=== PATIENT | female | born 1985 | race Caucasian/White ===

== ENCOUNTER 2016-08-16 23:50 | Emergency (ER) | payer OTHER ==
[~2016-08-16 23:50] MED LIST changes: -CHLORHEXIDINE GLUCONATE 2 % 1 PACK (2 CLOTHS) TOPICAL PRN; -HYDR-3516 PO; -INSULIN HUMAN REGULAR 1,000 UNITS/10 ML VIAL SQ PRN; -LACTATED RINGER'S 1000 ML IV PRN; -METOPROLOL TARTRATE 25 MG TAB PO PRN; -POVIDONE IODINE 5% (ANTISEPSIS KIT) 4 APPLICATIONS EACH NARE PRN; -SODIUM CHLORID 0.9% 500 ML IV PRN; -ceFAZolin 2 GM PREMIX 50 ML IV SCH
[2016-08-16 23:53] VITALS: BP 132/78; PULSE 98; RESP 18; TEMP 99.6; O2SAT 99
[2016-08-17] MEDS ORDERED: ONDANSETRON HCL 4 MG/2 ML VIAL IV PUSH ONE (00:30)
[2016-08-17] MEDS ORDERED: MORPHINE SULFATE 4 MG/ML INJ IV PUSH ONE (00:30)
[2016-08-17] MEDS ORDERED: HYDR-3516 PO (00:40)
--- NOTE | 2016-08-17 00:40 | PD ---
HPI Chief Complaint: Related Problem Time Seen by Provider: 00:14 Travel History International Travel<30 days: No Contact w/Intl Traveler<30days: No Traveled to known affect area: No History of Present Illness HPI 30-year-old female complains of severe low abdominal pain pelvic pain and vaginal bleeding. Patient is 2 para 0 and about 9 weeks . Patient has been seen by Dr. Ruelas at the [facility]. Patient had several pelvic ultrasound which shows intrauterine demise approximately 9 weeks of gestation. Patient was scheduled for D&C this morning. Patient however had some drinks this morning and D&C procedure was rescheduled for 5 days from now. Patient states that she started having increasing low abdominal pelvic pain since this morning and worse this evening. Patient started having increasing vaginal bleeding since this morning also. Patient denies any fever chills. Patient states that her blood type is O+. PFSH Past Medical History Medical other: Yes (THYROID) ?: LMP: 05/14/16 Past Surgical History Surgical History: No Previous Surgery Social History Alcohol Use: No Tobacco Use: Yes (1/2 PK DAILY) Allergies-Medications (Allergen,Severity, Reaction): Coded Allergies: No Known Allergies (Unverified , 08/17/16) Reported Meds & Prescriptions Reported Meds & Active Scripts Active No Active Prescriptions or Reported Medications Review of Systems General / Constitutional: No: Fever Eyes: No: Visual changes HENT: No: Headaches Cardiovascular: No: Chest Pain or Discomfort Respiratory: No: Shortness of Breath Gastrointestinal: Positive: Abdominal Pain Genitourinary: Positive: Pelvic Pain, Vaginal Bleeding, No: Dysuria Musculoskeletal: No: Pain Skin: No Rash Neurologic: No: Weakness Psychiatric: No: Depression Endocrine: No: Polydipsia Hematologic/Lymphatic: No: Easy Bruising Physical Exam Narrative GENERAL: Well-nourished, well-developed patient. SKIN: Focused skin assessment warm/dry. HEAD: Normocephalic. EYES: No scleral icterus. No injection or drainage. NECK: Supple, trachea midline. No JVD or lymphadenopathy. CARDIOVASCULAR: Regular rate and rhythm without murmurs, gallops, or rubs. RESPIRATORY: Breath sounds equal bilaterally. No accessory muscle use. GASTROINTESTINAL: Abdomen soft, non-tender, nondistended. MUSCULOSKELETAL: No cyanosis, or edema. BACK: Nontender without obvious deformity. No CVA tenderness. 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 The cervix is closed. The uterus is enlarged and moderate tenderness on palpation. Data Data Last Documented VS Vital Signs Date Time Temp Pulse Resp B/P Pulse Ox O2 Delivery O2 Flow Rate FiO2 08/16/16 23:53 99.6 98 18 132/78 99 Room Air Orders Morphine Inj (Morphine Inj) (08/17/16 00:30) Ondansetron Inj (Zofran Inj) (08/17/16 00:30) MDM Medical Decision Making Medical Screen Exam Complete: Yes Emergency Medical Condition: Yes Differential Diagnosis Differential diagnosis including threatened AB, incomplete AB, completed AB. Narrative Course 30-year-old female with low abdominal pain, pelvic pain, vaginal bleeding. History of demise at 9 week gestational age. I spoke with Dr. Mak, ED OB on-call. Advised pain medication and follow with Dr. Ruelas in a.m. morphine 4 mg IV. Zofran 4 mg IV. Diagnosis Primary Impression: demise before 20 weeks with retention of fetus Patient Instructions: General Instructions Additional Instructions: Hydrocodone as needed for pain. Follow-up with OB physician in a.m. Return if worse. Med/Other Pt SpecificInfo: Prescription(s) given Scripts Hydrocodone-Acetaminophen 5-325 mg Tab1 Tab PO Q6H PRN (PAIN) #30 TAB Ref 0 Prov:Edgardo Kwong MD 08/17/16 Disposition: 01 DISCHARGE HOME Condition: Stable Edgardo Kwong MD August 17, 2016 00:40
== END 2016-08-17 01:09 | disposition home or self-care (01) ==
LOC: NEPE 23:50
DX: O02.1 Missed abortion (principal); O99.331 Smoking (tobacco) complicating pregnancy, first trimester; F17.210 Nicotine dependence, cigarettes, uncomplicated; Z3A.09 9 weeks gestation of pregnancy
CPT/HCPCS: 96374; 96375; 99283; J2270; J2405

== ENCOUNTER → 2016-08-16 | Day surgery (SDC) | payer OTHER ==
[~2016-08-16] MED LIST: CHLORHEXIDINE GLUCONATE 2 % 1 PACK (2 CLOTHS) TOPICAL PRN; DOXY10TA PO; HYDR-3516 PO; INSULIN HUMAN REGULAR 1,000 UNITS/10 ML VIAL SQ PRN; LACTATED RINGER'S 1000 ML IV PRN; METOPROLOL TARTRATE 25 MG TAB PO PRN; POVIDONE IODINE 5% (ANTISEPSIS KIT) 4 APPLICATIONS EACH NARE PRN; PREN1CHW7 PO; SODIUM CHLORID 0.9% 500 ML IV PRN; ceFAZolin 2 GM PREMIX 50 ML IV SCH
--- NOTE | 2016-08-16 12:40 | MH ---
cc: KOFFI ALMARAZ MD DATE OF ADMISSION 08/16/2016 REASON FOR ADMISSION This patient is a 30 year-old white female. She is a 2, para 0 with one ectopic who is being to [facility] for treatment of missed . HISTORY OF PRESENT ILLNESS The patient is well-known to our practice. She was seen several times in the [facility]. She was scanned several times and found to have an intrauterine demise of approximately nine weeks gestation. The findings of the ultrasound were discussed at length with the patient and she was given the option of conservative management versus dilatation and curettage. The patient elected to proceed with dilation and curettage. MEDICAL HISTORY Medical history is essentially noncontributory. SURGICAL HISTORY She underwent surgical therapy of an ectopic . SOCIAL HISTORY The patient is a nonsmoker and a nondrinker. ALLERGIES She denies any allergies to medications. REVIEW OF SYSTEMS Essentially noncontributory PHYSICAL EXAM The patient is a well-developed, well-nourished female in no acute distress. VITAL SIGNS: Blood pressure was 107/62, pulse 70, respirations are 12, weight was 190. HEAD, EYES, EARS, NOSE, AND THROAT: Negative. CHEST: Clear to auscultation. CARDIOVASCULAR: Regular rate. ABDOMEN: Soft, bowel sounds were positive. PELVIC: The uterus is approximately eight weeks in size. There were no adnexal masses palpable. External genitalia was within normal limits. EXTREMITIES: Reveal no clubbing, cyanosis or edema. NEUROPSYCHIATRIC: The patient is oriented times three. She had no gross neuro cranial deficits. IMPRESSION ON ADMISSION Intrauterine demise at approximately eight weeks. PLAN Proceed with dilation and curettage with suction. MD MARY LOU Marquez/AUTUMN /12:14 PM /12:28 PM
== END | disposition home or self-care (01) ==
LOC: HSDC 13:43
PROVIDERS: ATTEND Obstetrics & Gynecology
DX: O02.1 Missed abortion (principal); Z3A.08 8 weeks gestation of pregnancy
CPT/HCPCS: 99211; G0463

== ENCOUNTER 2016-08-17 16:09 | Emergency (ER) | payer OTHER ==
[~2016-08-17 16:09] MED LIST changes: +HYDR-3516 PO
[2016-08-17 16:13] VITALS: BP 118/63; PULSE 86; RESP 20; TEMP 98; O2SAT 97
== END 2016-08-17 17:24 | disposition left against medical advice (07) ==
LOC: NED 16:09
DX: Z76.89 Persons encountering health services in other specified circumstances (principal)
CPT/HCPCS: 99281

== ENCOUNTER 2017-06-30 16:51 | Emergency (ER) | payer OTHER ==
[~2017-06-30] VITALS: Ht 162.6 cm; Wt 90.0 kg
[2017-06-30 17:01] VITALS: BP 146/69; PULSE 125; RESP 16; TEMP 98.3; O2SAT 99
[2017-06-30 17:46] LABS: AUTOMATED NEUTROPHIL # 7.8 TH/MM3 (1.8-7.7); BASOPHIL % 0.3 % (0.0-2.0); EOSINOPHIL # 0.1 TH/MM3 (0-0.4); EOSINOPHIL % 0.8 % (0.0-4.0); HEMATOCRIT 33.3 % (35.0-46.0); HEMOGLOBIN 11.8 GM/DL (11.6-15.3); LYMPH % 10.9 % (9.0-44.0); MEAN CELL VOLUME 92.9 FL (80.0-100.0); MEAN CORPUSCULAR HEMOGLOBIN 32.9 PG (27.0-34.0); MEAN CORPUSCULAR HGB CONC 35.4 % (32.0-36.0); MEAN PLATELET VOLUME 9.3 FL (7.0-11.0); MONO % 5.8 % (0.0-8.0); MONOCYTE # 0.6 TH/MM3 (0-0.9); NEUT % 82.2 % (16.0-70.0); PLATELET COUNT 185 TH/MM3 (150-450); RED BLOOD COUNT 3.58 MIL/MM3 (4.00-5.30); RED CELL DISTRIBUTION WIDTH 13.2 % (11.6-17.2); WHITE BLOOD COUNT 9.5 TH/MM3 (4.0-11.0)
[2017-06-30 17:51] LABS: BACTERIA, URINE RARE /hpf; BILIRUBIN, URINE NEG (NEG); BLOOD, URINE NEG (NEG); GLUCOSE,URINE NEG (NEG); KETONE, URINE NEG (NEG); MUCUS URINE FEW /lpf (OCC); NITRITE,URINE NEG (NEG); SQUAMOUS EPITHELIAL CELL URINE <1 /hpf (0-5); URINE COLOR YELLOW (YELLW/STRAW); URINE LEUKOCYTE ESTERASE NEG (NEG)
[2017-06-30 18:11] LABS: ALBUMIN 2.9 GM/DL (3.4-5.0); AST (GOT) 13 U/L (15-37); BICARBONATE 20.7 MEQ/L (21.0-32.0); BLOOD UREA NITROGEN 4 MG/DL (7-18); CALCIUM 8.5 MG/DL (8.5-10.1); CHLORIDE 103 MEQ/L (98-107); CREATININE 0.67 MG/DL (0.50-1.00); GLOMERULAR FILTRATION RATE 103 ML/MIN (>89); GLUCOSE,RANDOM 123 MG/DL (74-106); SODIUM (NA) 138 MEQ/L (136-145)
[2017-06-30 18:12] LABS: ALT (GPT) 33 U/L (10-53)
[2017-06-30 18:14] LABS: ALKALINE PHOSPHATASE 99 U/L (45-117); TOTAL BILIRUBIN ADULT 0.2 MG/DL (0.2-1.0); TOTAL PROTEIN 6.7 GM/DL (6.4-8.2)
[2017-06-30 19:45] VITALS: BP 148/69; PULSE 106; RESP 18; O2SAT 99
[2017-06-30] MEDS ORDERED: PRENATAL VIT (19:45)
[2017-06-30] MEDS ORDERED: SYNT175T PO (19:45)
[2017-06-30] MEDS ORDERED: CETI10CA3 PO (19:45)
[2017-06-30] MEDS ORDERED: AMOX500C PO (19:45)
--- NOTE | 2017-06-30 20:26 | PD ---
HPI Chief Complaint: Flank/Kidney Pain Time Seen by Provider: 19:48 Travel History International Travel<30 days: No Contact w/Intl Traveler<30days: No Traveled to known affect area: No History of Present Illness HPI The patient was seen and examined in the presence of the nurse. This patient is 7 months . She complains of one week of bilateral back discomfort as well as some occasional pelvic cramping and some cramping in the upper abdomen. No vaginal bleeding or fluid gush. Denies fever. Symptom severity is moderate. There was no injury. No urinary complaint. No alleviating factors. No exacerbating factors. PFSH Past Medical History Medical History: Denies Significant Hx ?: LMP: "I'M 26 WKS " : 3 Miscarriage: 1 : 1 Past Surgical History Abdominal Surgery: Yes ("ECTOPIC ") Oral Surgery: Yes Social History Alcohol Use: No Tobacco Use: Yes ("VERY LITTLE") Substance Use: No Allergies-Medications (Allergen,Severity, Reaction): Coded Allergies: No Known Allergies (Unverified Adverse Reaction, Unknown, 06/30/17) Reported Meds & Prescriptions Reported Meds & Active Scripts Active Reported [ Vit] Synthroid (Levothyroxine Sodium) 175 Mcg Tab 175 Mcg PO DAILY Amoxicillin 500 Mg Cap 500 Mg PO TID Zyrtec (Cetirizine HCl) 10 Mg Capsule PO DAILY Review of Systems General / Constitutional: No: Fever Eyes: No: Visual changes HENT: No: Headaches Cardiovascular: No: Chest Pain or Discomfort Respiratory: No: Shortness of Breath Gastrointestinal: Positive: Abdominal Pain Genitourinary: No: Dysuria Musculoskeletal: Positive: Pain Skin: No Rash Neurologic: No: Weakness Psychiatric: No: Depression Endocrine: No: Polydipsia Hematologic/Lymphatic: No: Easy Bruising Physical Exam Narrative GENERAL: Well-nourished, well-developed patient in no apparent distress. SKIN: Focused skin assessment reveals no rash and nodules. Skin is Warm and dry. HEAD: Atraumatic. Normocephalic. EYES: Pupils equal and round. No scleral icterus. No injection or drainage. ENT: No nasal bleeding or discharge. Mucous membranes pink and moist. NECK: Trachea midline. No JVD. CARDIOVASCULAR: Regular rate and rhythm. No murmur appreciated. RESPIRATORY: No accessory muscle use. Clear to auscultation. Breath sounds equal bilaterally. GASTROINTESTINAL: Abdomen soft, gravid, non-tender, nondistended. Hepatic and splenic margins not palpable. MUSCULOSKELETAL: No obvious deformities. No clubbing. No cyanosis. No edema. NEUROLOGICAL: Awake and alert. No obvious cranial nerve deficits. Motor grossly within normal limits. Normal speech. PSYCHIATRIC: Appropriate mood and affect; insight and judgment normal. Data Data Last Documented VS Vital Signs Date Time Temp Pulse Resp B/P (MAP) Pulse Ox O2 Delivery O2 Flow Rate FiO2 06/30/17 19:45 106 18 148/69 (95) 99 Room Air 06/30/17 17:01 98.3 Orders Orders Complete Blood Count With Diff (06/30/17 17:04) Comprehensive Metabolic Panel (06/30/17 17:04) Urinalysis - C+S If Indicated (06/30/17 17:04) Ed Discharge Order (06/30/17 20:22) Labs Laboratory Tests Test 06/30/17 17:23 White Blood Count 9.5 TH/MM3 Red Blood Count 3.58 MIL/MM3 Hemoglobin 11.8 GM/DL Hematocrit 33.3 % Mean Corpuscular Volume 92.9 FL Mean Corpuscular Hemoglobin 32.9 PG Mean Corpuscular Hemoglobin Concent 35.4 % Red Cell Distribution Width 13.2 % Platelet Count 185 TH/MM3 Mean Platelet Volume 9.3 FL Neutrophils (%) (Auto) 82.2 % Lymphocytes (%) (Auto) 10.9 % Monocytes (%) (Auto) 5.8 % Eosinophils (%) (Auto) 0.8 % Basophils (%) (Auto) 0.3 % Neutrophils # (Auto) 7.8 TH/MM3 Lymphocytes # (Auto) 1.0 TH/MM3 Monocytes # (Auto) 0.6 TH/MM3 Eosinophils # (Auto) 0.1 TH/MM3 Basophils # (Auto) 0.0 TH/MM3 CBC Comment DIFF FINAL Differential Comment Urine Color YELLOW Urine Turbidity CLEAR Urine pH 7.0 Urine Specific [place] 1.012 Urine Protein NEG mg/dL Urine Glucose (UA) NEG mg/dL Urine Ketones NEG mg/dL Urine Occult Blood NEG Urine Nitrite NEG Urine Bilirubin NEG Urine Urobilinogen LESS THAN 2.0 MG/DL Urine Leukocyte Esterase NEG Urine WBC LESS THAN 1 /hpf Urine Squamous Epithelial Cells <1 /hpf Urine Bacteria RARE /hpf Urine Mucus FEW /lpf Microscopic Urinalysis Comment CULT NOT INDICATED Blood Urea Nitrogen 4 MG/DL Creatinine 0.67 MG/DL Random Glucose 123 MG/DL Total Protein 6.7 GM/DL Albumin 2.9 GM/DL Calcium Level 8.5 MG/DL Alkaline Phosphatase 99 U/L Aspartate Amino Transf (AST/SGOT) 13 U/L Alanine Aminotransferase (ALT/SGPT) 33 U/L Total Bilirubin 0.2 MG/DL Sodium Level 138 MEQ/L Potassium Level 3.5 MEQ/L Chloride Level 103 MEQ/L Carbon Dioxide Level 20.7 MEQ/L Anion Gap 14 MEQ/L Estimat Glomerular Filtration Rate 103 ML/MIN MDM Medical Decision Making Medical Screen Exam Complete: Yes Emergency Medical Condition: Yes Medical Record Reviewed: Yes Differential Diagnosis labor, pyelonephritis, musculoskeletal back pain Narrative Course I have reviewed the patient's electronic medical record. CBC and metabolic profile and LFTs are normal Urine is clean Etiology of her discomfort is not obvious from history and physical. Recommend transfer to labor and delivery to rule out labor Pain is not typical for that but certainly is in the realm of possibility There is no other obvious explanation at this time Diagnosis Primary Impression: Back pain affecting in third trimester Additional Impression: Pelvic cramping in antepartum period Additional Instructions: Go directly to labor and delivery Med/Other Pt SpecificInfo: Other Disposition: 01 DISCHARGE HOME Condition: Stable Zeus Molina MD Jun 30, 2017 20:26
[2017-06-30 21:15] VITALS: TEMP 98.1
[2017-06-30] MEDS ORDERED: LACTATED RINGER'S 1000 ML INJ 1,000 ML IV SCH (21:48)
--- NOTE | 2017-06-30 21:59 | PD ---
HPI Chief Complaint back pain, ?LOF Date Seen: Jun 30, 2017 Time Seen: 21:49 Travel History International Travel<30 Days: No Contact w/Intl Traveler<30Days: No Known Affected Area: No History of Present Illness HPI Pt is a 31y/o @ 26.5wks. She has PNC with Dr. Estes. She presented to the ED this evening for back pain (midline) which she thought was her kidneys. She also reports being seen yesterday in clinic and given abx for a presumed UTI but no result had been available. She also reports a cough but she has not taken anything for it other than claritin. She reports LOF (?urine) with her cough. No VB. Some cramping. +FM. Weeks Gestation: 26 Para: 0 : 3 History Past Medical History Narrative Medical h/o thyroid cancer s/p rsxn (no radiation) Obstetric History Obstetric History SAB x1 ectopic x1 Past Surgical History Narrative Surgical thyroid rsxn Family History Family History: Negative Social History Alcohol Use: No Tobacco Use: No Substance Abuse: No Allergies-Medications (Allergen,Severity, Reaction): Coded Allergies: No Known Allergies (Unverified Adverse Reaction, Unknown, 06/30/17) Home Meds Reported Medications [ Vit] No Conflict Check 06/30/17 Levothyroxine (Synthroid) 175 Mcg Tab, 175 MCG PO DAILY for Thyroid, #30 TAB 0 Refills 06/30/17 Amoxicillin (Amoxicillin) 500 Mg Cap, 500 MG PO TID for Infection, CAP 0 Refills 06/30/17 Cetirizine HCl (Zyrtec) 10 Mg Capsule, PO DAILY 06/30/17 Review of Systems Except as stated in HPI: all other systems reviewed are Neg Physical Exam Vital Signs Date Time Temp Pulse Resp B/P (MAP) Pulse Ox O2 Delivery O2 Flow Rate FiO2 06/30/17 20:45 06/30/17 19:45 106 18 148/69 (95) 99 Room Air 06/30/17 17:01 98.3 125 16 146/69 (94) 99 Narrative General: well developed, well nourished, no acute distress HEENT: normocephalic atraumatic, extraocular movements intact, neck supple Abdomen: soft, gravid, nontender, nondistended Uterus: fundus above umbilicus Extremities: full range of motion Skin: normal coloration, no rashes, no suspicious skin lesions noted Neurologic: cranial nerves 2-12 grossly intact, normal muscle tone, normal gait Psychiatric: normal mood and affect, appropriate FHTs: 140s, age appropriate tracing [place]: rippling Cvx: cl/th/hi Data Data Vital Signs Reviewed: Yes Orders Orders Complete Blood Count With Diff (06/30/17 17:04) Comprehensive Metabolic Panel (06/30/17 17:04) Urinalysis - C+S If Indicated (06/30/17 17:04) Ed Discharge Order (06/30/17 20:22) Vital Signs (Adult) .ON ADMISSION (06/30/17 21:48) ^ Labor Status (06/30/17 21:48) ^ Non Stress Test (06/30/17 21:48) Fibronectin (06/30/17 21:48) Pamg-1 Test .ONCE (06/30/17 21:48) Lactated Ringer's 1000 Ml Inj (Lr 1000 M (06/30/17 21:48) Labs Laboratory Tests Test 06/30/17 17:23 White Blood Count 9.5 Red Blood Count 3.58 Hemoglobin 11.8 Hematocrit 33.3 Mean Corpuscular Volume 92.9 Mean Corpuscular Hemoglobin 32.9 Mean Corpuscular Hemoglobin Concent 35.4 Red Cell Distribution Width 13.2 Platelet Count 185 Mean Platelet Volume 9.3 Neutrophils (%) (Auto) 82.2 Lymphocytes (%) (Auto) 10.9 Monocytes (%) (Auto) 5.8 Eosinophils (%) (Auto) 0.8 Basophils (%) (Auto) 0.3 Neutrophils # (Auto) 7.8 Lymphocytes # (Auto) 1.0 Monocytes # (Auto) 0.6 Eosinophils # (Auto) 0.1 Basophils # (Auto) 0.0 CBC Comment DIFF FINAL Differential Comment Urine Color YELLOW Urine Turbidity CLEAR Urine pH 7.0 Urine Specific [place] 1.012 Urine Protein NEG Urine Glucose (UA) NEG Urine Ketones NEG Urine Occult Blood NEG Urine Nitrite NEG Urine Bilirubin NEG Urine Urobilinogen LESS THAN 2.0 Urine Leukocyte Esterase NEG Urine WBC LESS THAN 1 Urine Squamous Epithelial Cells <1 Urine Bacteria RARE Urine Mucus FEW Microscopic Urinalysis Comment CULT NOT INDICATED Blood Urea Nitrogen 4 Creatinine 0.67 Random Glucose 123 Total Protein 6.7 Albumin 2.9 Calcium Level 8.5 Alkaline Phosphatase 99 Aspartate Amino Transf (AST/SGOT) 13 Alanine Aminotransferase (ALT/SGPT) 33 Total Bilirubin 0.2 Sodium Level 138 Potassium Level 3.5 Chloride Level 103 Carbon Dioxide Level 20.7 Anion Gap 14 Estimat Glomerular Filtration Rate 103 MDM Plan 31y/o @ 26.5wks with ?LOF, cramping, back pain, cough. 1. ?LOF -- amnisure negative 2. cramping -- FFN negative -- cvx cl/th/hi 3. back pain -- midline, MSK 4. cough -- advised on mucinex 5. IUP -- age appropriate tracing -- toco improved with IV hydration Dispo: stable for d/c home Diagnosis Diagnosis: Primary Impression: 26 weeks gestation of Additional Impressions: Back pain affecting in third trimester Pelvic cramping in antepartum period Disposition: 01 DISCHARGE HOME Condition: Stable Patient Instructions: General Instructions Additional Instructions: Go directly to labor and delivery Departure Forms: Tests/Procedures Kristy Coker MD Jun 30, 2017 21:59
== END 2017-06-30 23:24 | disposition home or self-care (01) ==
LOC: NEPD 16:51 → HOBED 23:24
DX: O26.892 Other specified pregnancy related conditions, second trimester (principal); M54.89 Other dorsalgia; R10.2 Pelvic and perineal pain; O99.332 Smoking (tobacco) complicating pregnancy, second trimester; Z3A.26 26 weeks gestation of pregnancy; Z79.899 Other long term (current) drug therapy; Z85.850 Personal history of malignant neoplasm of thyroid
CPT/HCPCS: 80053; 81001; 82731; 85025; 96360